=== PATIENT | male | born 1985 | race Caucasian/White ===

== ENCOUNTER → 2024-01-15 | Outpatient (CLI) | payer OTHER, SELFPAY ==
[2024-01-15 14:59] LABS: Absolute Lymphocyte Count 1.95 X10^3/uL (0.83-4.51); Basophil# 0.06 X10^3/uL; Basophil% 0.9 % (0-1); Eosinophil# 0.24 X10^3/uL; Eosinophils% 3.6 % (0-5); Hematocrit 44.4 % (40-54); Hemoglobin 14.8 g/dL (13.0-16.5); Lymphocyte # 1.95 X10^3/ul (0.83-4.51); Lymphocyte % 29.1 % (19-41); Mean Corp Hgb Conc 33.3 g/dL (32-36); Mean Corpuscular Hgb 26.6 pg (27.0-32.0); Mean Corpuscular Volume 79.9 fL (80-94); Monocyte# 0.37 X10^3/uL; Monocyte% 5.5 % (0-10); NRBC Flagged by Analyzer 0 % (0-5); Neutrophil # 4.04 X10^3/uL (2.7-7.7); Neutrophil % 60.3 % (47-70); Platelet Count 207 K/mm3 (150-450); RBC Distribution Width CV 13.7 % (11.6-14.6); Red Blood Count 5.56 M/mm3 (4.6-6.2); White Blood Count 6.7 K/mm3 (4.4-11.0)
[2024-01-15 15:43] LABS: Anion Gap 4 (5-15); BUN 13 mg/dL (7-18); BUN/Creat Ratio 13.4 RATIO (10-20); Calcium,Total 8.9 mg/dL (8.5-10.1); Chloride 106 mmol/L (98-107); Cholesterol 180 mg/dL (200); Creatinine, Serum 0.97 mg/dL (0.70-1.30); EST Glomerular Filtration Rate 92 mL/min (>60); Est Glom Filt Rate - Afr Amer 111 mL/min (>60); Glucose 96 mg/dL (74-106); High Density Lipoprotein 43 mg/dL; Potassium 3.8 mmol/L (3.5-5.1); Sodium Level 139 mmol/L (136-145); Thyroid Stim Hormone (TSH) 1.26 uIU/mL (0.358-3.74); Triglycerides 192 mg/dL; Very Low Density Lipoprotein 38 mg/dL (5-40)
== END | disposition home or self-care (01) ==
PROVIDERS: Referring Provider Internal Medicine Cardiovascular Disease; Visit Provider Internal Medicine Cardiovascular Disease
DX: R00.0 Tachycardia, unspecified (principal); Z82.49 Family history of ischemic heart disease and other diseases of the circulatory system
CPT/HCPCS: 36415; 80048; 80061; 84443; 85025

== ENCOUNTER → 2024-02-24 | Outpatient (CLI) | payer SELFPAY, OTHER ==
--- NOTE | 2024-02-24 12:49 | STE_ITS ---
Reason For Study: Pre-Syncope; Family HX of CAD Stress Results Protocol: Derrick Protocol Maximum Predicted HR: 182 bpm Target HR: 155 bpm % Maximum Predicted HR: 98 % DurationHeart Rate Stage (mm:ss) (bpm) BP Comment Baseline 68 118/82No Chest Pain Derrick Protocol Stage I 3:00 88 122/78No Chest Pain Derrick Protocol Stage II 3:00 105 130/72No Chest Pain Derrick Protocol Stage III 3:00 137 144/64No Chest Pain Derrick Protocol Stage IV 3:00 162 148/62No Chest Pain Derrick Protocol Stage V 1:00 179 / No Chest Pain; Mod Dyspnea Recovery 95 130/72No Chest Pain Stress Duration: 13:00 mm:ss Maximum Stress HR: 179 bpm METS: 17 Baseline Echocardiogram Findings Stress Echo Wall motion Data Resting WM Intermediate WM Stress WM ECHO/Stress Test Echo w/o Contrast Interpretation Summary Exercise stress echo. 38-year-old man with a history of presyncope. Resting EKG demonstrates sinus bradycardia with a rate of 57 bpm normal interva ls are noted resting blood pressure is 118/82 mmHg. The patient exercised according to the regular B ruce protocol for total duration of 13 minutes. Patient completed 1 minute into stage V of the Br uce protocol the maximum heart rate attained was 181 bpm which was 99% of maximum predicted hear t rate the maximum workload was 17.2 metabolic equivalents. At rest there were no ST or T wave jazmine nges noted suggest ischemia and at peak exercise upsloping ST changes only were noted which did no t meet the criteria for ischemia. No clinical angina was noted at that time test was terminated due to the target heart rate being achieved. The peak blood pressure was 172/70 mmHg which was a good b lood pressure response to exercise. Stress echocardiogram. Resting echocardiogram demonstrates preserved left ventricular systolic functio n with structurally normal valves, and equivocal mitral valve prolapse. Estimated ejection fraction of 55%. With exercise there was improvement in ejection fraction to 65% with no wall motion abnormalities noted to suggest ischemia and there was thickening of all carroll noted. Conclusion: Normal exercise stress test with no EKG criteria for ischemia at a high workloa d. Normal stress echocardiographic images. Equivocal mitral valve prolapse present. Ordering Physician: David Martines Referring Physician: David Martines MD Performed By: Dat Farmer RCS
== END | disposition home or self-care (01) ==
LOC: CVS 12:48
PROVIDERS: Visit Provider Internal Medicine Cardiovascular Disease
DX: R55 Syncope and collapse (principal)
CPT/HCPCS: 93017; 93350